=== PATIENT | female | born 2000 | race Caucasian/White ===

== ENCOUNTER 2023-08-21 18:26 | Emergency (ER) | payer OTHER ==
[~2023-08-21] VITALS: Ht 165.1 cm; Wt 12.0 kg
[2023-08-21 18:38] VITALS: BP 119/77; TEMP 98.4; O2SAT 98
[2023-08-21] MEDS ORDERED: KETOROLAC 60MG/2ML VIAL IM ONE (19:15)
[2023-08-21] MEDS ORDERED: ACET-2708 MT (20:00)
[2023-08-21 20:06] VITALS: PULSE 94; RESP 16
== END 2023-08-21 20:10 | disposition home or self-care (01) ==
LOC: ER 18:26
DX: M25.551 Pain in right hip (principal)
CPT/HCPCS: 81025; 73502; 96372; 99283; J1885; Z7610